=== PATIENT | female | born 1985 | race Caucasian/White ===

== ENCOUNTER 2025-01-01 12:20 | Emergency (ER) | payer OTHER ==
[~2025-01-01] VITALS: Ht 170.2 cm; Wt 113.6 kg
[2025-01-01 12:40] VITALS: BP 129/91; PULSE 76; RESP 18; TEMP 97.1; O2SAT 96
[2025-01-02] MEDS ORDERED: ONDA-243 PO (11:04)
[2025-01-02] MEDS ORDERED: MECL-302 PO (11:04)
== END 2025-01-01 13:51 | disposition left against medical advice (07) ==
LOC: ER 12:21
DX: R51.9 Headache, unspecified (principal); R42 Dizziness and giddiness; R11.0 Nausea; Z53.21 Procedure and treatment not carried out due to patient leaving prior to being seen by health care provider; Z88.2 Allergy status to sulfonamides; Z88.5 Allergy status to narcotic agent

== ENCOUNTER 2025-01-02 08:33 | Emergency (ER) | payer OTHER ==
[~2025-01-02] VITALS: Ht 170.2 cm; Wt 115.0 kg
[2025-01-02 08:38] VITALS: BP 145/93; PULSE 82; RESP 16; TEMP 98.9; O2SAT 99
--- NOTE | 2025-01-02 09:07 | Physician Documentation ---
History of Present Illness ~ Chief Complaint: Headache Stated Complaint: MIGRAINE Time Seen by MD: 08:44 Primary Medical Doctor: Swapnil BERGMAN Patient is seen today with complaints of migrainous headache. Patient did have some head trauma where she tripped and fell and hit the would corner of a desk and had a laceration to her forehead 2-1/2 weeks ago. Patient states she was fine without any type of concussive symptoms for few days and she did have some headache but was generally fine in did fine without any symptoms over memorial weekend but then just a couple of days ago on Monday started having some vertigo and nausea and vomiting. Patient does have a history of migraines and she took some Imitrex which seemed to help until the nighttime when she took another dose of the 100 mg of Imitrex and then patient states she is still having headache this morning and also feels like she is on a boat with some vertigo. Patient denies any abdominal pain or chest pain or shortness of breath or diarrhea. She states she has not vomited since Monday which was two days ago. She has no other concern or complaint at this time. Medication Reconciliation Allergies: Coded Allergies: Sulfa (Sulfonamide Antibiotics) (Verified Allergy, Unknown, 12/14/24) adhesive (Verified Allergy, Unknown, 12/14/24) morphine (Verified Adverse Reaction, Intermediate, nauseas, body feels hot, 12/14/24) Past Medical History Past Medical History: Asthma Alcohol Use: Occasionally Drug Use: none Occupation: employed Review of Systems Constitutional: Denies: chills, fever, weakness Eyes: Denies: pain, blurred vision ENT: Denies: ear pain, nose pain, throat pain, mouth pain Respiratory: Denies: cough, shortness of breath Cardiovascular: Denies: chest pain, palpitations Gastrointestinal: Denies: abdominal pain, nausea, vomiting Genitourinary: Denies: burning, dysuria Female Genitalia: Denies: vaginal discharge, pelvic pain Neurological: Denies: headache, dizziness Musculoskeletal: Denies: pain, swelling Integumentary: Denies: rash, lesions Allergic/Immunologic: Denies: hives, itching Hematologic/Lymphatic: Denies: no symptoms reported Psychiatric: Denies: depression, anxiety Physical Exam Vital Signs: Temperature: 98.9, Source: Oral, Heart Rate: 82, Respiratory Rate: 16, BP: 145/93, Pulse Oximetry: 99, Weight: 115.000 Oxygen Flow Rate: 0 Physical Exam General: Awake and Alert, no acute distress. HEENT: PERRLA, EOM intact bilaterally. Conjunctiva pink, Sclera clear, Mucus Membranes moist. Neck: Supple without masses and tenderness. Resp: Unlabored. Lungs clear to auscultation bilaterally. Heart: Regular Rate and rhythm, normal S1 and S2 without murmur, rub or gallop. Abdomen: Soft and non tender no organomegaly Extremities: No cyanosis,clubbing or edema. Skin: Warm and Dry. Progress Results/Orders Results/Orders Orders - CATIE RODGERS PAC Saline Lock (01/02/25 ) Completed Orders - CATIE RODGERS PAC Normal Saline 1000ml (Sodium Chloride 10 (01/02/25 09:02) Ketorolac Trometh 30mg/Ml Vial (Toradol (01/02/25 09:02) Meclizine Tablets (Antivert Tablet) (01/02/25 09:02) Diphenhydramine Inj (Benadryl Inj.) (01/02/25 09:02) Ondansetron Inj. (Zofran 4mg/2ml Vial) (01/02/25 09:02) Medications Received in ER Medications (Trade) Dose Ordered Sig/Odalys Route PRN Reason Start Time Stop Time Status Last Admin Dose Admin Sodium Chloride 1,000 ml @ 1,000 mls/hr ONCE STAT IV 01/02/25 09:02 01/02/25 10:01 DC 01/02/25 09:45 1,000 MLS/HR (Toradol inj. 30mg/ml) 30 mg ONCE STAT IV 01/02/25 09:02 01/02/25 09:10 DC 01/02/25 09:50 30 MG (Antivert tablet) 25 mg ONCE STAT PO 01/02/25 09:02 01/02/25 09:10 DC 01/02/25 09:50 25 MG (Benadryl inj.) 50 mg ONCE STAT IV 01/02/25 09:02 01/02/25 09:10 DC 01/02/25 09:50 50 MG (Zofran 4mg/2ml vial) 4 mg ONCE STAT IV 01/02/25 09:02 01/02/25 09:10 DC 01/02/25 09:50 4 MG Vital Signs 01/02/25 08:38 Temp 98.9 Pulse 82 Resp 16 B/P (MAP) 145/93 Pulse Ox 99 O2 Flow Rate 0 Medical Decision Making Findings Patient is seen today with complaints of migrainous headache. Patient did have some head trauma where she tripped and fell and hit the would corner of a desk and had a laceration to her forehead 2-1/2 weeks ago. Patient states she was fine without any type of concussive symptoms for few days and she did have some headache but was generally fine in did fine without any symptoms over memorial weekend but then just a couple of days ago on Monday started having some vert igo and nausea and vomiting. Patient does have a history of migraines and she took some Imitrex which seemed to help until the nighttime when she took another dose of the 100 mg of Imitrex and then patient states she is still having headache this morning and also feels like she is on a boat with some vertigo. Patient denies any abdominal pain or chest pain or shortness of breath or diarrhea. She states she has not vomited since Monday which was two days ago. She has no other concern or complaint at this time. Patient was treated today with a L of normal saline, Toradol 30 mg IV, meclizine 25 mg by mouth, Zofran 4 mg IV, Benadryl 50 mg IV. Patient states her headache has improved significantly but she still feels a little vertigo and feels as though she is on a boat. Patient will be given a prescription for meclizine 50 mg twice a day by mouth as needed for vertigo as well as Zofran 4-8 mg ODT two to 3 times a day as needed for nausea. Patient and I use shared decision-making today and we agreed to hold off on the CT scan of her head at this time. Patient will return to ED with any worsening, concerning or changing symptoms. She will follow up with her neurologist. Departure Disposition: HOME / SELF CARE / HOMELESS Impression: Primary Impression: Migraine Qualified Codes: G43.909 - Migraine, unspecified, not intractable, without status migrainosus Additional Impression: Concussion without loss of consciousness Qualified Codes: S06.0X0D - Concussion without loss of consciousness, subsequent encounter Condition: Improved Discharge Instructions: Post Concussion Syndrome,Adult Additional Instructions: Patient was treated today with a L of normal saline, Toradol 30 mg IV, meclizine 25 mg by mouth, Zofran 4 mg IV, Benadryl 50 mg IV. Patient states her headache has improved significantly but she still feels a little vertigo and feels as though she is on a boat. Patient will be given a prescription for meclizine 50 mg twice a day by mouth as needed for vertigo as well as Zofran 4-8 mg ODT two to 3 times a day as needed for nausea. Patient and I use shared decision-making today and we agreed to hold off on the CT scan of her head at this time. Patient will return to ED with any worsening, concerning or changing symptoms. She will follow up with her neurologist. Departure Forms: Excuse form Work or School Excused From: Work Excuse beginning now through the following date: January 04, 2025 Referrals: NO PRIMARY CARE PROVIDER (PCP) Prescriptions ONDANSETRON ODT 4mg tablet (ONDANSETRON ODT) 4 Mg Tab.rapdis 4 MG PO BID for 7 Days, #14 TAB Prov: CATIE RODGERS 01/02/25 Meclizine HCl (Meclizine HCl) 25 Mg Tablet 2 TAB PO Q12H for vertigo for 10 Days, #40 TAB Prov: CATIE RODGERS 01/02/25 Signature Scribe Signature: No scribe Attestation: No scribe no scribe CATIE RODGERS January 02, 2025 09:07
[2025-01-02] MEDS: normal saline 1000ml 1,000 ML IV STA (09:45)
[2025-01-02] MEDS: diphenhydrAMINE 50 mg/ml inj IV STA (09:50)
[2025-01-02] MEDS: meclizine 12.5mg tablet PO STA (09:50)
[2025-01-02] MEDS: ondansetron/PF 4mg/2ml inj IV STA (09:50)
[2025-01-02] MEDS: ketorolac trometh 30MG/ML vial 30 MG/ML VIAL IV STA (09:50)
[2025-01-02] MEDS ORDERED: MECL-302 PO (11:04)
[2025-01-02] MEDS ORDERED: ONDA-243 PO (11:04)
== END 2025-01-02 11:15 | disposition home or self-care (01) ==
LOC: ER 08:34
DX: S06.0X0A Concussion without loss of consciousness, initial encounter (principal); J45.909 Unspecified asthma, uncomplicated; G43.909 Migraine, unspecified, not intractable, without status migrainosus; Z88.2 Allergy status to sulfonamides; Z72.89 Other problems related to lifestyle; Z88.5 Allergy status to narcotic agent; W01.0XXA Fall on same level from slipping, tripping and stumbling without subsequent striking against object, initial encounter; Y93.89 Activity, other specified; Y92.89 Other specified places as the place of occurrence of the external cause; Y99.8 Other external cause status
CPT/HCPCS: 96361; 96374; 96375; 99284; J1200; J1885; J2405; J7030; J8597

== ENCOUNTER 2025-01-03 11:32 | Outpatient (CLI) | payer OTHER ==
[~2025-01-03 11:32] MED LIST: MECL-302 PO; ONDA-243 PO
--- NOTE | 2025-01-03 12:07 | RADIOLOGY REPORT ---
EXAM: CT CT HEAD HISTORY: CONCUSSION WITHOUT LOSS OF CONSCIOUSNESS COMPARISON: None TECHNIQUE: Axial images of the head were obtained and reformatted in coronal and sagittal planes. All CT scans at this medical facility are performed using dose modulation techniques as appropriate t o a performed exam including the following: Automated exposure control was utilized; adjustment of th e MA and/or KV according to patient size; and use of iterative reconstruction technique. CT Dose: CTDI volume is 55 mGy. Dose-length product is 8 79 mGy*cm FINDINGS: There is no evidence of acute intracranial hemorrhage, mass, mass effect midline shift. There is no h ydrocephalus or extra-axial fluid collection. Delatorre-white matter differentiation is maintained. The visualized paranasal sinuses and mastoid air cells are clear. The calvarium is intact. IMPRESSION: 1. No acute intracranial process. HS:Y
== END 2025-01-03 23:59 | disposition home or self-care (01) ==
LOC: RAD 11:32
PROVIDERS: ATTEND Nurse Practitioner Family
DX: S06.0X0A Concussion without loss of consciousness, initial encounter (principal); X58.XXXA Exposure to other specified factors, initial encounter; Y93.89 Activity, other specified; Y92.89 Other specified places as the place of occurrence of the external cause; Y99.8 Other external cause status
CPT/HCPCS: 70450